=== PATIENT | female | born 2000 | race Caucasian/White ===

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

== ENCOUNTER 2020-06-18 18:33 | Emergency (ER) | payer OTHER ==
[~2020-06-18] VITALS: Ht 162.6 cm; Wt 57.4 kg
[~2020-06-18 18:33] MED LIST changes: +DOCU100C16 PO; +IBUP80TA PO; +PERCOCET PO
[2020-06-18] MEDS ORDERED: AUGM875T28 PO (18:39)
[2020-06-18] MEDS ORDERED: RABIES IMMUNE GLOBULIN 1500 INTERNATIONAL UNIT/5ML VIAL (90375) IM ONE (20:50)
[2020-06-18] MEDS ORDERED: RABIES VACCINE HUMAN 2.5 INTERNATIONAL UNITS/ML VIAL (90675) IM ONE (20:50)
[2020-06-18] MEDS ORDERED: KETOROLAC TROMETHAMINE 10 MG TAB PO ONE (21:05)
[2020-06-18 21:39] VITALS: BP 119/70
== END 2020-06-18 21:41 | disposition home or self-care (01) ==
LOC: M ED 18:33
DX: Z20.3 Contact with and (suspected) exposure to rabies (principal); Z23 Encounter for immunization; S61.451A Open bite of right hand, initial encounter; W54.0XXA Bitten by dog, initial encounter; Y92.9 Unspecified place or not applicable; Y93.9 Activity, unspecified; Y99.9 Unspecified external cause status; Z91.89 Other specified personal risk factors, not elsewhere classified

== ENCOUNTER 2020-06-21 13:32 | Emergency (ER) | payer OTHER ==
[~2020-06-21] VITALS: Ht 165.1 cm; Wt 59.5 kg
[~2020-06-21 13:32] MED LIST changes: +AUGM875T28 PO
[2020-06-21] MEDS ORDERED: RABIES VACCINE HUMAN 2.5 INTERNATIONAL UNITS/ML VIAL (90675) IM ONE (14:10)
[2020-06-21] MEDS ORDERED: CLINDAMYCIN 900 MG in IV 1 EA IV ONE (14:55)
[2020-06-21 15:36] LABS: BASO # 0.1 10^3/uL (0.0-0.2); BASO % 0.6 % (0.0-1.0); EOS # 0.4 10^3/uL (0.0-0.5); EOS % 4.9 % (0.0-3.0); HEMATOCRIT 40.1 % (36.0-47.0); HEMOGLOBIN 13.2 g/dl (12.0-15.5); LYMPH # 2.1 10^3/uL (1.5-5.0); LYMPH % 26.2 % (24.0-44.0); MEAN CORPUSCULAR HEMOGLOBIN 27.6 pg (27.0-33.0); MEAN CORPUSCULAR HGB CONC 32.9 g/dl (32.0-36.5); MEAN CORPUSCULAR VOLUME 83.7 fl (80.0-96.0); MONO # 0.5 10^3/uL (0.0-0.8); MONO % 5.9 % (2.0-8.0); NEUTROPHILS # 5.1 10^3/uL (1.5-8.5); RED BLOOD COUNT 4.79 10^6/uL (4.00-5.40); WHITE BLOOD COUNT 8.1 10^3/uL (4.0-10.0)
[2020-06-21 15:57] LABS: BLOOD UREA NITROGEN 12 MG/DL (7-18); C REACTIVE PROTEIN QUANTITATIV 0.66 MG/DL (0.00-0.30); CALCIUM LEVEL 9.1 MG/DL (8.5-10.1); CARBON DIOXIDE LEVEL 26 MEQ/L (21-32); CHLORIDE LEVEL 110 MEQ/L (98-107); CREATININE FOR GFR 0.53 MG/DL (0.55-1.30); GLUCOSE, FASTING 84 MG/DL (70-100); POTASSIUM SERUM 4.2 MEQ/L (3.5-5.1); SODIUM LEVEL 140 MEQ/L (136-145)
[2020-06-21 16:04] LABS: HCG, SERUM QUALITATIVE NEGATIVE (NEGATIVE)
--- NOTE | 2020-06-21 16:35 | REP ---
INDICATION: dog bite right hand. COMPARISON: None. TECHNIQUE: Four views of the right hand are obtained. FINDINGS: Four views of the right hand demonstrate normal bones, joints, and soft tissues. No fracture or subluxation is seen. No opaque foreign body noted. IMPRESSION: Negative right hand series. <Electronically signed by Nahum Oakley > 06/21/20 [id number]
[2020-06-21] MEDS ORDERED: cefTRIAXone SOD 1 GM in D5W MINI-BAG PLUS 50 ML IV ONE (17:10)
[2020-06-21 18:17] VITALS: BP 111/60
--- NOTE | 2020-06-22 08:17 | CR ---
CONSULTATION DATE: 06/21/2020 CHIEF COMPLAINT: Right thumb pain after dog bite. HISTORY OF PRESENT ILLNESS: This 20-year-old female was bitten on the right thumb by a dog about seven days ago. She was seen in the ED when this happened. There was irrigation and debridement performed at the time apparently. However, she has been brought back now twice, I believe, for rabies series vaccination updates. She was placed on Augmentin twice a day. She has developed some increased redness and pain in the thumb. Yesterday she did do some soaking and expressed a small amount of pus. It feels and looks a lot better according to the patient. She has not had any fevers, chills, night sweats, nausea, vomiting and she feels overall well. PAST MEDICAL HISTORY: Unremarkable. SOCIAL HISTORY: She is in the . PHYSICAL EXAMINATION: She is a well appearing, fit, 20-year-old female in no acute distress. Vital signs are stable. She is afebrile. No tachycardia. Examination of her right thumb reveals some mild bruising, minimal swelling overlying her right thenar eminence on the volar side. No obvious pain with passive range of motion of the IP joint of the thumb. She is actively able to flex and extend the IP joint of the thumb but there is definitely some soreness there. There is no redness, warmth or drainage. There is a small puncture wound that appears closed over and healed in the mid-aspect of the thenar eminence. No other obvious injuries. Strong radial pulse. Hand is warm and well perfused. Normal sensation and motor function in the median, radial and ulnar nerve distributions as well as AIN and PIN. IMAGING STUDIES: Radiographs was reviewed of the hand. No acute abnormalities. LABORATORY DATA: Blood work was obtained and reveals WBC 8.1. Neutrophil percentage 62. ESR 9. CRP 0.66. ASSESSMENT AND PLAN: This 20-year-old female with a dog bite to her right thumb with some increased recent signs of infection that seems to be resolving now. I recommend close followup in the next 2-3 days. The ED has started intravenous clindamycin. I suggest adding ceftriaxone 1 gm IV for one dose now for broad spectrum coverage followed by another five day course of Augmentin to ensure this is appropriately and adequately treated. I communicated this directly to the PA covering, Jasbir Ocampo as well as to the patient and gave them my card and recommend close followup. All are in understanding and agreement with the plan. Dressing changes as needed as well as warm soaks as needed. ROSENDO
== END 2020-06-21 18:34 | disposition home or self-care (01) ==
LOC: M ED 13:32
DX: Z20.3 Contact with and (suspected) exposure to rabies (principal); Z23 Encounter for immunization; S61.451A Open bite of right hand, initial encounter; W54.0XXA Bitten by dog, initial encounter; Y92.009 Unspecified place in unspecified non-institutional (private) residence as the place of occurrence of the external cause; Y93.89 Activity, other specified; Y99.9 Unspecified external cause status; Z91.89 Other specified personal risk factors, not elsewhere classified
CPT/HCPCS: 36415; 73130; 80048; 84703; 85025; 85652; 86140; 87040; 90471; 90675; 96365; 96375; 99283; J0696

== ENCOUNTER 2020-06-26 18:39 | Emergency (ER) | payer OTHER ==
[~2020-06-26] VITALS: Ht 162.6 cm; Wt 57.4 kg
[2020-06-26] MEDS ORDERED: RABIES VACCINE HUMAN 2.5 INTERNATIONAL UNITS/ML VIAL (90675) IM ONE (18:55)
[2020-06-26 19:30] VITALS: BP 96/60
== END 2020-06-26 19:33 | disposition home or self-care (01) ==
LOC: M ED 18:39
DX: Z23 Encounter for immunization (principal); Z20.3 Contact with and (suspected) exposure to rabies

== ENCOUNTER 2021-07-26 10:14 | Emergency (ER) | payer OTHER ==
[~2021-07-26] VITALS: Ht 162.6 cm; Wt 59.6 kg
[2021-07-26] MEDS ORDERED: NORE0.353 PO (10:47)
[2021-07-26] MEDS ORDERED: NS 1,000 ML IV ONE (14:00)
[2021-07-26] MEDS ORDERED: ONDANSETRON 4MG/2ML VIAL IV ONE (14:00)
[2021-07-26 15:47] LABS: BASO % 0.3 % (0.0-1.0); EOS # 0.3 10^3/uL (0.0-0.5); EOS % 5.4 % (0.0-3.0); HEMATOCRIT 38.8 % (36.0-47.0); HEMOGLOBIN 12.7 g/dl (12.0-15.5); LYMPH # 1.5 10^3/uL (1.5-5.0); LYMPH % 26.3 % (24.0-44.0); MEAN CORPUSCULAR HEMOGLOBIN 28.2 pg (27.0-33.0); MEAN CORPUSCULAR HGB CONC 32.7 g/dl (32.0-36.5); MONO # 0.3 10^3/uL (0.0-0.8); MONO % 5.7 % (2.0-8.0); NEUTROPHILS # 3.6 10^3/uL (1.5-8.5); NEUTROPHILS % 62.1 % (36.0-66.0); PLATELET COUNT, AUTOMATED 213 10^3/uL (150-450); RED BLOOD COUNT 4.51 10^6/uL (4.00-5.40); WHITE BLOOD COUNT 5.8 10^3/uL (4.0-10.0)
[2021-07-26 15:59] LABS: THYROID STIMULATING HORMONE 0.775 uIU/ML (0.358-3.740); THYROXINE (T4) 8.1 UG/DL (4.5-12.0)
[2021-07-26] MEDS ORDERED: ONDA4TAB6 PO (15:59)
[2021-07-26 16:09] VITALS: BP 110/63
== END 2021-07-26 16:10 | disposition home or self-care (01) ==
LOC: M ED 10:14
DX: R55 Syncope and collapse (principal); R11.2 Nausea with vomiting, unspecified; F17.200 Nicotine dependence, unspecified, uncomplicated; Z91.89 Other specified personal risk factors, not elsewhere classified
CPT/HCPCS: 36415; 70450; 80047; 84436; 84443; 84479; 84702; 85025; 93005; 96361; 96374; 99284; J2405

== ENCOUNTER → 2024-03-19 | Outpatient (CLI) | payer OTHER ==
[~2024-03-19] MED LIST changes: +NORE0.353 PO; +ONDA-282 PO
== END ==
LOC: M WHC 11:03
PROVIDERS: ATTEND Obstetrics & Gynecology
DX: O28.8 Other abnormal findings on antenatal screening of mother (principal); Z3A.28 28 weeks gestation of pregnancy

== ENCOUNTER → 2024-04-17 | Outpatient (CLI) | payer OTHER ==
[~2024-04-17] MED LIST changes: +COLA100C5 PO; +OXYC1TAB23 PO; +PRENTAB53 PO
[2024-04-17 18:58] LABS: HEMATOCRIT 39.6 % (36.0-47.0); HEMOGLOBIN 12.8 g/dl (12.0-15.5); MEAN CORPUSCULAR HEMOGLOBIN 28.6 pg (27.0-33.0); MEAN CORPUSCULAR HGB CONC 32.3 g/dl (32.0-36.5); MEAN CORPUSCULAR VOLUME 88.6 fl (80.0-96.0); PLATELET COUNT, AUTOMATED 218 10^3/uL (150-450); RED BLOOD COUNT 4.47 10^6/uL (4.00-5.40); WHITE BLOOD COUNT 9.4 10^3/uL (4.0-10.0)
== END ==
LOC: M PLALAB 15:33
PROVIDERS: ATTEND Obstetrics & Gynecology
DX: Z36.89 Encounter for other specified antenatal screening (principal); Z3A.36 36 weeks gestation of pregnancy

== ENCOUNTER → 2024-04-22 | Outpatient (CLI) | payer OTHER ==
[~2024-04-22] MED LIST changes: -COLA100C5 PO; -OXYC1TAB23 PO
== END ==
LOC: M RAD 15:33
PROVIDERS: ATTEND Obstetrics & Gynecology
DX: O26.843 Uterine size-date discrepancy, third trimester (principal)

== ENCOUNTER 2024-05-05 05:14 | Inpatient (IN) | payer OTHER ==
[2024-05-05] VITALS (8 sets, daily range): BP systolic 98–116; BP diastolic 52–60; TEMP 97; O2SAT 96–98
[~2024-05-05] VITALS: Ht 162.6 cm; Wt 70.3 kg
[2024-05-05] MEDS: LACTATED RINGER'S 1000 ML IV STA (05:26)
[2024-05-05 06:18] LABS: HEMATOCRIT 38.8 % (36.0-47.0); HEMOGLOBIN 12.9 g/dl (12.0-15.5); MEAN CORPUSCULAR HEMOGLOBIN 28.8 pg (27.0-33.0); MEAN CORPUSCULAR HGB CONC 33.2 g/dl (32.0-36.5); MEAN CORPUSCULAR VOLUME 86.6 fl (80.0-96.0); PLATELET COUNT, AUTOMATED 225 10^3/uL (150-450); RED BLOOD COUNT 4.48 10^6/uL (4.00-5.40); WHITE BLOOD COUNT 7.4 10^3/uL (4.0-10.0)
[2024-05-05 07:14] LABS: HEPATITIS C VIRUS ABY INDEX 0.05 INDEX (<0.8)
[2024-05-05] MEDS ORDERED: MORPHINE PRES-FREE INJ 10 MG/10 ML VIAL As Ordered ONE (07:14)
[2024-05-05] MEDS ORDERED: OXYTOCIN 30UNITS IN 0.9% NaCl 500ML IV BAG As Ordered ONE (07:16)
[2024-05-05] MEDS: ceFAZolin SODIUM 2 GM in DEXTROSE 5% (D5W) ADV/MINI-BAG 50 ML IV ONE (07:18)
[2024-05-05] MEDS: BICITRA 30ML SOLN UDC PO ONE (07:18)
[2024-05-05] MEDS: LR 1,000 ML IV SCH ×2 (07:20→13:22)
[2024-05-05] MEDS ORDERED: PHENYLephrine 500MCG 5ML (100MCG/ML) SYRINGE As Ordered ONE (07:58)
[2024-05-05] MEDS ORDERED: ePHEDrine SULFATE 25 MG/5 ML(5MG/ML) SYRINGE As Ordered ONE (07:58)
[2024-05-05] MEDS ORDERED: ACETAMINOPHEN 1000MG/100ML IV BAG As Ordered ONE (07:58)
[2024-05-05] MEDS ORDERED: ONDANSETRON 4MG 2ML VIAL As Ordered ONE (08:01)
[2024-05-05] MEDS ORDERED: OXYTOCIN INJ 10UNITS/ML 1ML VIAL As Ordered ONE (08:02)
[2024-05-05] MEDS ORDERED: KETOROLAC 30 MG/ML 1ML VIAL As Ordered ONE (08:04)
[2024-05-05 08:19] LABS: CORD GAS ABE A -1.7; CORD GAS HCO3 A 25.4 MMOL/L; CORD GAS O2 SAT A 70.6 %; CORD GAS PCO2 A 51.8 mmHg; CORD GAS PH A 7.308 UNITS; CORD GAS PO2 A 31.4 mmHg; CORD GAS SBC A 22.4 MMOL/L
[2024-05-05 08:20] LABS: CORD GAS ABE V -2.1; CORD GAS HCO3 V 23.5 MMOL/L; CORD GAS O2 SAT V 93.3 %; CORD GAS PCO2 V 43.3 mmHg; CORD GAS PH V 7.353 UNITS; CORD GAS PO2 V 58.1 mmHg; CORD GAS SBC V 22.6 MMOL/L; CORD GAS TCO2 V 24.9 MMOL/L
[2024-05-05 08:25] LABS: HIV 1&2 SCREEN NEGATIVE (NEGATIVE)
[2024-05-05] MEDS ORDERED: PERCOCET 5MG/325MG TAB PO PRN (08:45)
[2024-05-05] MEDS ORDERED: RHOGAM 300MCG (1500IU) INJ IM SCH (08:45)
[2024-05-05] MEDS ORDERED: ONDANSETRON 4MG TAB PO PRN (08:45)
[2024-05-05] MEDS ORDERED: DOCUSATE SODIUM 100MG CAPSULE PO PRN (08:45)
[2024-05-05] MEDS ORDERED: SIMETHICONE 80MG CHEW TAB PO PRN (08:45)
[2024-05-05] MEDS ORDERED: COLA100C5 PO (08:55)
[2024-05-05] MEDS ORDERED: IBUP80TA PO (08:55)
[2024-05-05] MEDS ORDERED: OXYC1TAB23 PO (08:55)
[2024-05-05] MEDS ORDERED: **NOTE PATIENT COMMENT** MISC XX SCH (09:05)
[2024-05-05] MEDS ORDERED: METOCLOPRAMIDE INJ 10MG/2ML VIAL IV PRN (09:05)
[2024-05-05] MEDS ORDERED: oxyCODONE 5MG TAB PO PRN (09:05)
[2024-05-05] MEDS ORDERED: fentaNYL 100 MCG/2 ML INJECTION IV PRN (09:05)
[2024-05-05] MEDS ORDERED: MEPERIDINE 25 MG/ML 1ML VIAL IV PRN (09:05)
[2024-05-05] MEDS: SLF 3 ML SYR IV SCH (09:05)
[2024-05-05] MEDS ORDERED: diphenhydrAMINE 50MG/ML VIAL IV PRN (09:05)
[2024-05-05] MEDS ORDERED: ONDANSETRON 4MG 2ML VIAL IV PRN (09:05)
[2024-05-05] MEDS ORDERED: NALOXONE INJ 0.4MG/1ML VIAL IV PRN ×2 (09:05)
[2024-05-05] MEDS: PRENATAL VITAMINS CHEWABLE TABLET PO SCH (10:30)
[2024-05-05] MEDS: KETOROLAC 30 MG/ML 1ML VIAL IV SCH (14:12)
[2024-05-06 01:56] VITALS: BP 90/52; O2SAT 96
[2024-05-06 06:05] VITALS: BP 91/52; O2SAT 98
[2024-05-06 06:15] LABS: HEMATOCRIT 32.5 % (36.0-47.0); MEAN CORPUSCULAR HEMOGLOBIN 28.9 pg (27.0-33.0); MEAN CORPUSCULAR HGB CONC 32.9 g/dl (32.0-36.5); MEAN CORPUSCULAR VOLUME 87.8 fl (80.0-96.0); PLATELET COUNT, AUTOMATED 143 10^3/uL (150-450); WHITE BLOOD COUNT 8.9 10^3/uL (4.0-10.0)
[2024-05-06 06:35] LABS: HEMOGLOBIN 10.7 g/dl (12.0-15.5)
[2024-05-06] MEDS: IBUPROFEN 800 MG TAB PO SCH (09:10)
[2024-05-06 10:00] VITALS: BP 99/58; O2SAT 97
[2024-05-06 14:00] VITALS: BP 113/55; O2SAT 97
[2024-05-06 18:00] VITALS: BP 118/71; O2SAT 96
[2024-05-06 22:00] VITALS: BP 119/53; O2SAT 97
[2024-05-07 02:00] VITALS: BP 108/65; O2SAT 98
[2024-05-07 06:00] VITALS: BP 106/58; O2SAT 98
[2024-05-07] MEDS: MEASLES,MUMPS,RUBELLA VACCINE INJ (MMR-II) SC.IMMUN ONE (09:19)
== END 2024-05-07 16:50 | disposition home or self-care (01) | DRG 785 ==
LOC: M LDI 05:14 → M OBS 10:03
PROVIDERS: ADMIT Specialist; ATTEND Specialist
PROC: 0UB70ZZ Excision of Bilateral Fallopian Tubes, Open Approach (ICD-10-PCS; 2024-05-05)
PROC: 10D00Z1 Extraction of Products of Conception, Low, Open Approach (ICD-10-PCS; principal; 2024-05-05 07:30)
DX: O34.211 Maternal care for low transverse scar from previous cesarean delivery (principal); Z37.0 Single live birth; Z3A.39 39 weeks gestation of pregnancy; Z30.2 Encounter for sterilization